=== PATIENT | female | born 1980 | race Caucasian/White ===

== ENCOUNTER 2019-06-16 10:17 | Emergency (ER) | payer OTHER ==
[~2019-06-16] VITALS: Ht 152.4 cm; Wt 57.2 kg
[2019-06-16] MEDS ORDERED: AIRBORNE EFFER1 EACH PO (12:45)
[2019-06-16] MEDS ORDERED: TESSALON PERLE100 MG PO (12:45)
[2019-06-16] MEDS ORDERED: KETO10TA2 PO (12:45)
[2019-06-16] MEDS ORDERED: MUCINEX DM ER1 EAC1 PO (12:45)
== END 2019-06-16 13:44 | disposition home or self-care (01) ==
LOC: ER 10:17
DX: J11.1 Influenza due to unidentified influenza virus with other respiratory manifestations (principal)

== ENCOUNTER 2021-10-10 08:17 | Emergency (ER) | payer OTHER ==
[~2021-10-10] VITALS: Ht 152.4 cm; Wt 57.2 kg
[~2021-10-10 08:17] MED LIST: AIRBORNE EFFER1 EACH PO; KETO10TA2 PO; MUCINEX DM ER1 EAC1 PO; TESSALON PERLE100 MG PO
[2021-10-10] MEDS ORDERED: IBU800 MG PO (08:27)
== END 2021-10-10 12:41 ==
LOC: ER 08:17
DX: U07.1 COVID-19 (principal); J06.9 Acute upper respiratory infection, unspecified; Z88.8 Allergy status to other drugs, medicaments and biological substances

== ENCOUNTER 2021-10-10 12:20 | Outpatient (CLI) | payer OTHER ==
[~2021-10-10 12:20] MED LIST changes: +IBU800 MG PO
== END 2021-10-10 12:55 | disposition home or self-care (01) ==
LOC: ASH CLINIC 12:20
PROVIDERS: ATTEND General Practice
DX: U07.1 COVID-19 (principal)

== ENCOUNTER 2021-12-31 13:09 | Emergency (ER) | payer OTHER ==
[~2021-12-31] VITALS: Ht 152.4 cm; Wt 57.2 kg
[2021-12-31] MEDS ORDERED: LEVSIN/SL0.125 MG SL (19:48)
[2021-12-31] MEDS ORDERED: CIPRO500 MG PO (19:48)
[2021-12-31] MEDS ORDERED: PEPCID AC20 MG PO (19:48)
== END 2021-12-31 20:00 | disposition home or self-care (01) ==
LOC: ER 13:09
DX: K52.9 Noninfective gastroenteritis and colitis, unspecified (principal); Z20.822 Contact with and (suspected) exposure to COVID-19; Z88.6 Allergy status to analgesic agent